=== PATIENT | female | born 2000 ===

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

== ENCOUNTER 2018-01-17 18:03 | Emergency (ER) | payer MEDICAID ==
[2018-01-17 18:07] VITALS: BP 120/84; PULSE 62; RESP 20; TEMP 98; O2SAT 96
[2018-01-17 18:56] LABS: SQUAMOUS EPITHIAL 11 /hpf (0-5); URINE BACTERIA RARE (<OCC); URINE BILIRUBIN NEGATIVE (NEGATIVE); URINE BLOOD NEGATIVE (NEGATIVE); URINE CLARITY Hazy (Clear); URINE COLOR Yellow (YELLOW); URINE GLUCOSE (UA) NORMAL (Normal); URINE LEUKOCYTE ESTERASE 1+ Leu/uL (Negative); URINE PROTEIN NEGATIVE (NEGATIVE); URINE UROBILINOGEN NORMAL mg/dL (0.2-1.0)
--- NOTE | 2018-01-17 19:34 | C.PDOC ---
History Of Present Illness 17 year old female presents to the ER with a complaint of dysuria, urgency, and frequency for the past 4 days, associated with vaginal irritation. Patient states she is sexually active and occasionally uses protection. Denies abdominal pain or back pain. Time Seen by Provider: 01/17/18 18:23 Chief Complaint (Nursing): Female Genitourinary History Per: Patient History/Exam Limitations: no limitations Onset/Duration Of Symptoms: Days Current Symptoms Are (Timing): Still Present Quality Of Discomfort: Unable To Describe Associated Symptoms: Urinary Symptoms. denies: Fever, Chills, Back Pain, Other (Abdominal pain) Alleviating Factors: None Recent travel outside of the [place]: No Abnormal Vaginal Bleeding: No Past Medical History Reviewed: Historical Data, Nursing Documentation, Vital Signs Vital Signs: Last Vital Signs Temp 98.0 F 01/17/18 18:06 Pulse 62 01/17/18 18:06 Resp 20 01/17/18 18:06 BP 120/84 01/17/18 18:06 Pulse Ox 96 01/17/18 21:46 - Medical History PMH: Anxiety Family History: States: Unknown Family Hx - Social History Hx Tobacco Use: No Hx Alcohol Use: Yes Hx Substance Use: No - Immunization History Hx Tetanus Toxoid Vaccination: Yes Hx Influenza Vaccination: No Hx Pneumococcal Vaccination: No Review Of Systems Constitutional: Negative for: Fever, Chills Gastrointestinal: Negative for: Abdominal Pain Genitourinary: Positive for: Dysuria, Frequency, Other (Urgency, Vaginal irriation) Musculoskeletal: Negative for: Back Pain Physical Exam - Physical Exam Appears: Non-toxic Skin: Warm, Dry Head: Atraumatic, Normacephalic Eye(s): bilateral: Normal Inspection Oral Mucosa: Moist Gastrointestinal/Abdominal: Soft, No Tenderness Back: No CVA Tenderness Pelvic: Vaginal Discharge (Scant), No Cervical Motion Tenderness, No Adnexal Tenderness, Other (Mildly irriated appearing clitoris. RN Tran present for examination) Neurological/Psych: Oriented x3, Normal Speech ED Course And Treatment O2 Sat by Pulse Oximetry: 96 (Room air) Pulse Ox Interpretation: Normal Medical Decision Making Medical Decision Making: Patient discharged on antibiotics for uti and advised to avoid sexual activity until antibiotics complete and irritation resolves. Disposition - Disposition Referrals: Gayla Kaur MD [Medical Doctor] - Disposition: HOME/ ROUTINE Disposition Time: 19:31 Condition: GOOD Additional Instructions: Drink increased fluids. Take antibiotics as prescribed. Follow up wit Dr Petrona Reilly or your gynecoloigst in a few days. 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 - Scribe Statement The provider has reviewed the documentation as recorded by the Scribe Larry Zhong All medical record entries made by the Elmeribshima were at my direction and personally dictated by me. I have reviewed the chart and agree that the record accurately reflects my personal performance of the history, physical exam, medical decision making, and the department course for this patient. I have also personally directed, reviewed, and agree with the discharge instructions and disposition.
== END 2018-01-17 19:37 | disposition home or self-care (01) ==
LOC: C.ER 18:03
DX: N39.0 Urinary tract infection, site not specified (principal)